=== PATIENT | female | born 1980 | race Two or more races ===

== ENCOUNTER 2024-04-10 10:02 | Outpatient (CLI) | payer OTHER ==
[2024-04-10 10:48] LABS: HEMATOCRIT 31.9 % (36.0-45.00); HEMOGLOBIN 10.1 g/dL (12.0-15.00); MEAN CORPUSCULAR HEMOGLOBIN 21.2 pg (27.00-32.0); MEAN CORPUSCULAR HGB CONC 31.8 g/dl (32.0-36.0); PLATELET COUNT 338 K/uL (150-450); RED BLOOD COUNT 4.79 M/uL (4.00-6.00); RED CELL DISTRIBUTION WIDTH 21.2 % (11.5-14.5)
[2024-04-10 10:49] LABS: MEAN CELL VOLUME 66.6 fL (80.00-100.00)
[2024-04-10 11:33] LABS: % SATURACION 3.5 % (15-50); BILIRUBIN TOTAL 0.35 mg/dL (0.3-1.2); CALCIUM 9.3 mg/dL (8.5-10.1); CREATININE SERUM 0.8 mg/dL (0.55-1.02); GFR 77.92; GLOBULINA 3.7 G/DL (2.4-3.5); POTASSIUM 4.35 mEq/L (3.5-5.1); T4 FREE 0.91 NG/ML (0.76-1.46); TOTAL PROTEIN 7.7 gm/dL (6.4-8.2); TSH 1.96 uIU/mL (0.358-3.74)
[2024-04-10 12:17] LABS: FOLIC ACID > 20.00 ng/ml (4.78-20)
[2024-04-11 09:08] LABS: ANTI THYROID PEROXIDASE < 9 IU/mL (0-34)
[2024-04-11 15:06] LABS: hgb f 0 % (0.0-2.0); hgb s 0 % (0.0)
[2024-04-15 09:07] LABS: g6pd quant 283 (127-427)
== END 2024-04-10 10:03 | disposition home or self-care (01) ==
LOC: LAB 10:02
PROVIDERS: ATTEND Internal Medicine Hematology & Oncology
DX: D50.8 Other iron deficiency anemias (principal); I10 Essential (primary) hypertension; E11.9 Type 2 diabetes mellitus without complications; K29.70 Gastritis, unspecified, without bleeding; J45.998 Other asthma; R74.02 Elevation of levels of lactic acid dehydrogenase [LDH]; K76.89 Other specified diseases of liver; D63.8 Anemia in other chronic diseases classified elsewhere; D51.1 Vitamin B12 deficiency anemia due to selective vitamin B12 malabsorption with proteinuria; E03.9 Hypothyroidism, unspecified; E06.3 Autoimmune thyroiditis

== ENCOUNTER 2024-04-10 10:41 | Outpatient (CLI) | payer OTHER | END 2024-04-10 10:54 | disposition home or self-care (01) | LOC: SONOGRAMA 10:41 | PROVIDERS: ATTEND Internal Medicine Hematology & Oncology | DX: E04.2 Nontoxic multinodular goiter (principal); D50.8 Other iron deficiency anemias; I10 Essential (primary) hypertension; E11.9 Type 2 diabetes mellitus without complications; K29.70 Gastritis, unspecified, without bleeding; J45.998 Other asthma ==

== ENCOUNTER 2024-04-18 08:33 | Outpatient (CLI) | payer OTHER | END 2024-04-18 08:43 | disposition home or self-care (01) | LOC: MAMO-SONO 08:33 | PROVIDERS: ATTEND General Practice | DX: R10.12 Left upper quadrant pain (principal); R10.2 Pelvic and perineal pain; N60.11 Diffuse cystic mastopathy of right breast; N60.12 Diffuse cystic mastopathy of left breast ==

== ENCOUNTER 2024-10-15 10:12 | Outpatient (CLI) | payer OTHER ==
[2024-10-15 11:02] LABS: HEMATOCRIT 33.7 % (36.0-45.00); MEAN CELL VOLUME 72.4 fL (80.00-100.00); MEAN CORPUSCULAR HEMOGLOBIN 23.6 pg (27.00-32.0); MEAN CORPUSCULAR HGB CONC 32.6 g/dl (32.0-36.0); PLATELET COUNT 344 K/uL (150-450); RED BLOOD COUNT 4.66 M/uL (4.00-6.00); RED CELL DISTRIBUTION WIDTH 15.1 % (11.5-14.5)
[2024-10-15 12:09] LABS: BILIRUBIN TOTAL 0.44 mg/dL (0.3-1.2); CALCIUM 9.5 mg/dL (8.5-10.1); CREATININE SERUM 0.79 mg/dL (0.55-1.02); GFR 78.7; GLOBULINA 3.8 G/DL (2.4-3.5); POTASSIUM 3.53 mEq/L (3.5-5.1); TOTAL PROTEIN 7.8 gm/dL (6.4-8.2)
[2024-10-15 12:21] LABS: % SATURACION 5.4 % (15-50); FERRITIN 8.1 NG/ML (8-252); T4 FREE 1.01 NG/ML (0.76-1.46); TSH 2.22 uIU/mL (0.358-3.74)
[2024-10-15 12:39] LABS: FOLIC ACID > 20.00 ng/ml (4.78-20)
[2024-10-17 09:10] LABS: ANTI THYROID PEROXIDASE < 9 IU/mL (0-34); TRANSFERIN 420 mg/dL (192-364)
== END 2024-10-15 14:12 | disposition home or self-care (01) ==
LOC: LAB 10:12
PROVIDERS: ATTEND Internal Medicine Hematology & Oncology
DX: D50.8 Other iron deficiency anemias (principal); D51.1 Vitamin B12 deficiency anemia due to selective vitamin B12 malabsorption with proteinuria; I10 Essential (primary) hypertension; E11.9 Type 2 diabetes mellitus without complications; K29.70 Gastritis, unspecified, without bleeding; J45.998 Other asthma; E04.2 Nontoxic multinodular goiter; R74.02 Elevation of levels of lactic acid dehydrogenase [LDH]; K76.89 Other specified diseases of liver; E03.8 Other specified hypothyroidism; E06.3 Autoimmune thyroiditis

== ENCOUNTER 2024-10-15 10:40 | Outpatient (CLI) | payer OTHER | END 2024-10-15 10:44 | disposition home or self-care (01) | LOC: SONOGRAMA 10:40 | PROVIDERS: ATTEND Internal Medicine Hematology & Oncology | DX: E04.2 Nontoxic multinodular goiter (principal); D51.1 Vitamin B12 deficiency anemia due to selective vitamin B12 malabsorption with proteinuria; D50.8 Other iron deficiency anemias; I10 Essential (primary) hypertension; E11.9 Type 2 diabetes mellitus without complications; K29.70 Gastritis, unspecified, without bleeding; J45.998 Other asthma ==

== ENCOUNTER 2024-11-08 09:37 | Outpatient (CLI) | payer OTHER ==
[2024-11-08 11:26] LABS: COL EPI 115 SECONDS (82-175)
[2024-11-10 08:04] LABS: INR 0.94; PARTIAL THROMBOPLASTIN TIME 25.9 SECONDS (22.0-34.0); PTT 50:50 26.9 SECONDS (22.4-33.0)
[2024-11-10 08:05] LABS: PROTHROMBIN TIME 10.3 SECONDS (9.0-11.5)
[2024-11-10 08:07] LABS: PT 50:50 10.3 SECONDS (9.7-11.4)
== END 2024-11-08 11:08 | disposition home or self-care (01) ==
LOC: LAB 09:37
PROVIDERS: ATTEND Internal Medicine Hematology & Oncology
DX: D50.8 Other iron deficiency anemias (principal); D51.1 Vitamin B12 deficiency anemia due to selective vitamin B12 malabsorption with proteinuria; I10 Essential (primary) hypertension; E11.9 Type 2 diabetes mellitus without complications; K29.70 Gastritis, unspecified, without bleeding; J45.998 Other asthma; E04.2 Nontoxic multinodular goiter; D68.8 Other specified coagulation defects; E56.1 Deficiency of vitamin K; D69.1 Qualitative platelet defects

== ENCOUNTER 2025-04-06 13:58 | Inpatient (IN) | payer OTHER ==
[~2025-04-06] VITALS: Ht 147.3 cm; Wt 77.1 kg
[2025-04-06] MEDS ORDERED: LOSARTAN-HCTZ1 EAC1 PO (14:24)
[2025-04-06] MEDS ORDERED: FENOFIBRATE48 MG PO (14:24)
[2025-04-06] MEDS ORDERED: METFORMIN HCL500 M1 PO (14:24)
[2025-04-06] MEDS ORDERED: MONTELUKAST SOD10 MG PO (14:25)
[2025-04-06] MEDS ORDERED: ROSUVASTATIN CA10 MG PO (14:25)
[2025-04-06] MEDS ORDERED: CLARITIN10 M1 PO (14:25)
[2025-04-06] MEDS ORDERED: ATENOLOL50 MG PO (14:25)
[2025-04-06] MEDS ORDERED: [UNRECOGNIZED DRUG - OTHER] PO (14:26)
[2025-04-06] MEDS ORDERED: FUSION PLUS CA1 EACH PO (14:27)
[2025-04-06] MEDS ORDERED: ORTHO DF 3,7751 EACH PO (14:28)
[2025-04-06] MEDS ORDERED: VITAMIN B122500 MCG PO (14:28)
--- NOTE | 2025-04-06 14:33 | NUR ---
PACIENTE ALERTA Y ORIENTADA X3 PRESENTA REFERIDO POR DRA. HOWARDDA FUENTES POR ANEMIA. REFIERE ATENDERSE TAMBIEN CON EL INTERNISTA DR. KISHAN ONEILL. SE [place] S/V Y SE UBICA.
[2025-04-06] MEDS ORDERED: KETOROLAC TROMETHAMINE 30 MG VIAL IU ONE (16:00)
--- NOTE | 2025-04-06 16:33 | NUR ---
SE ORIENTA SOBRE TX MEDICO Y LA MISMA REFIERE ENTENDER Y ACEPTAR. SE CANALIZA Y SE COELCTAN MUESTRAS DE LAB, SE ADMINISTRA MED HALLE ORDEN MEDICA. SE HACE ENTREGA DE ENVASE PARA U/A. PTE ES LLEVADA A REALIZAR SONO PENDIENTE.
[2025-04-06] MEDS ORDERED: KETOROLAC TROMETHAMINE 30 MG VIAL ONE (16:34)
[2025-04-06 16:39] LABS: BASO % 0.4 % (0.1-1.2); EOS # 0.13 (0.04-0.54); EOS % 2.3 % (0.7-7.0); LYMPH # 2.49 (1.18-3.74); LYMPH % 43.8 % (19.3-53.1); MEAN PLATELET VOLUME 9.90 fl (9.4-12.4); MONO # 0.38 (0.24-0.82); MONO % 6.7 % (4.7-12.5); NEUT # 2.65 (1.56-6.13); NEUT % 46.6 % (34.0-71.1); RED CELL DISTRIBUTION WIDTH 13.0 % (11.6-14.4)
[2025-04-06 17:11] LABS: BUN CREA RATIO 14.0 (7.0-25.0); CREATININE SERUM 0.64 mg/dL (0.55-1.02); GFR 100.35; GLUCOSE FASTING 92.0 mg/dL (65-100); OSMOLALITY SERUM 285.0 MOSM/KG (275-295)
[2025-04-06 18:40] LABS: URINE APPEARANCE Clear; URINE BILIRRUBIN Negative (NEGATIVE); URINE BLOOD Large; URINE COLOR Yellow; URINE GLUCOSE Negative (NEGATIVE); URINE KETONE Negative (NEGATIVE); URINE LEUKOCYTE Trace; URINE NITRATE Negative; URINE PROTEIN Trace (NEGATIVE); URINE UROBILINOGEN 1.0 E.U./dl
[2025-04-06 18:43] LABS: URINE BACTERIA 332.3 uL (0.0-1933); URINE EPITHELIAL CELLS 13.9 uL (0.0-38.8); URINE RBC 531.2 uL (0.0-20.8); URINE WBC 28.2 uL (0.0-23.2)
[2025-04-06 18:45] LABS: URINE CAST 0.14 uL (0.0-1.40)
[2025-04-06] MEDS ORDERED: ACETAMINOPHEN 500 MG GEL..CAP PO PRN (21:30)
[2025-04-06] MEDS ORDERED: ESTROGENS, CONJUGATED 25 MG VIAL IV ONE (21:30)
[2025-04-06] MEDS ORDERED: DEXTROSE 50 % IN WATER 0.5 G/ML DISP.SYRIN IV PRN (21:30)
[2025-04-06] MEDS ORDERED: 0.9 % SODIUM CHLORIDE 1,000 ML IV SCH ×2 (21:30)
[2025-04-06] MEDS ORDERED: INSULIN LISPRO 1,000 UNIT/10 ML UNITS SUBCUTANEO PRN (21:30)
[2025-04-06] MEDS ORDERED: ESTROGENS, CONJUGATED 25 MG VIAL ONE (22:22)
[2025-04-06 23:27] LABS: INR 1.0
[2025-04-07] VITALS: BP 129/82; O2SAT 98
[2025-04-07 06:29] VITALS: BP 118/75; O2SAT 98
[2025-04-07] MEDS ORDERED: FAMOTIDINE/PF 20 MG in 0.9 % SODIUM CHLORIDE 8 ML IV PUSH SCH (09:00)
[2025-04-07] MEDS ORDERED: ATENOLOL 50 MG TABLET PO SCH (09:00)
[2025-04-07] MEDS ORDERED: LOSARTAN/HYDROCHLOROTHIAZIDE 1 UDTAB TABLET PO SCH (09:00)
[2025-04-07 09:12] VITALS: BP 120/78; O2SAT 100
[2025-04-07] MEDS ORDERED: SOD FERRIC GLUC COMPLX/SUCROSE 62.5 MG/5 ML AMPUL IV SCH (10:42)
[2025-04-07] MEDS ORDERED: DIPHENHYDRAMINE HCL 50 MG/ML VIAL 1ML IV SCH (10:44)
[2025-04-07] MEDS ORDERED: OxyCODONE HCL 5 MG TABLET (ROXICODONE) PO SCH (11:06)
[2025-04-07] MEDS ORDERED: ONDANSETRON HCL 2 MG/ML VIAL IV PRN (11:15)
[2025-04-07 12:40] VITALS: BP 145/79; O2SAT 100
[2025-04-07 16:00] VITALS: BP 153/76; O2SAT 99
[2025-04-07] MEDS ORDERED: DIPHENHYDRAMINE HCL 50 MG/ML VIAL 1ML IV ONE (20:45)
[2025-04-08 00:40] VITALS: BP 126/84; O2SAT 100
[2025-04-08 01:26] LABS: BASO % 0.3 % (0.1-1.2); EOS # 0.22 (0.04-0.54); EOS % 2.5 % (0.7-7.0); LYMPH # 3.00 (1.18-3.74); LYMPH % 33.4 % (19.3-53.1); MEAN PLATELET VOLUME 9.70 fl (9.4-12.4); MONO # 0.63 (0.24-0.82); MONO % 7.0 % (4.7-12.5); NEUT # 5.04 (1.56-6.13); NEUT % 56.2 % (34.0-71.1); RED CELL DISTRIBUTION WIDTH 13.4 % (11.6-14.4)
[2025-04-08 08:00] VITALS: BP 120/79; O2SAT 95
== END 2025-04-08 13:29 | disposition home or self-care (01) | DRG 812 ==
LOC: ER 13:58 → SURH 21:39 → SEC-K 21:39 → SURH 04-07 01:27
PROVIDERS: Emergency Medicine; General Practice; ADMIT Internal Medicine; ATTEND Internal Medicine
PROC: BU4CZZZ Ultrasonography of Uterus and Ovaries (ICD-10-PCS; 2025-04-06)
PROC: 30233N1 Transfusion of Nonautologous Red Blood Cells into Peripheral Vein, Percutaneous Approach (ICD-10-PCS; principal; 2025-04-07)
DX: D62 Acute posthemorrhagic anemia (principal); D51.0 Vitamin B12 deficiency anemia due to intrinsic factor deficiency; N92.1 Excessive and frequent menstruation with irregular cycle; N84.0 Polyp of corpus uteri; D25.1 Intramural leiomyoma of uterus; N83.291 Other ovarian cyst, right side; L50.0 Allergic urticaria; T45.4X5A Adverse effect of iron and its compounds, initial encounter; I10 Essential (primary) hypertension; E11.9 Type 2 diabetes mellitus without complications; E03.9 Hypothyroidism, unspecified; E78.5 Hyperlipidemia, unspecified; Z79.84 Long term (current) use of oral hypoglycemic drugs; Y92.230 Patient room in hospital as the place of occurrence of the external cause

== ENCOUNTER 2025-04-21 12:32 | Outpatient (CLI) | payer OTHER ==
[~2025-04-21 12:32] MED LIST: ATENOLOL50 MG PO; CLARITIN10 M1 PO; FENOFIBRATE48 MG PO; FUSION PLUS CA1 EACH PO; LOSARTAN-HCTZ1 EAC1 PO; METFORMIN HCL500 M1 PO; MONTELUKAST SOD10 MG PO; ORTHO DF 3,7751 EACH PO; ROSUVASTATIN CA10 MG PO; VITAMIN B122500 MCG PO; [UNRECOGNIZED DRUG - OTHER] PO
== END 2025-04-21 12:43 | disposition home or self-care (01) ==
LOC: MAMO-SONO 12:32
PROVIDERS: ATTEND Obstetrics & Gynecology
DX: N60.09 Solitary cyst of unspecified breast (principal)